=== PATIENT | female | born 1950 | race Caucasian/White ===

== ENCOUNTER 2017-04-14 13:58 | Emergency (ER) | payer MEDICARE, OTHER ==
[~2017-04-14] VITALS: Ht 165.1 cm; Wt 75.8 kg
[~2017-04-14 13:58] MED LIST: ALBU90OI INH; ALIS150T PO; ALPR.5 PO; ALPR1 PO; AMLO10 PO; AMLO10/40 PO; AMOCLA500 PO; ARIP10 PO; ASPI325 PO; ASPI81CH; ASPI81CH PO; ATOR10; ATOR40TA PO; AZIT250 PO; AZOR PO; BACL10; CALACE667G PO; CALC1.25T PO; CALCAVITD PO; CALCIUM 500 +1 EAC2 PO; CITA20 PO; CLOP75; CLOP75 PO; CRUTCH4 USE; CYCL10 PO; Cleocin HCl300 MG PO; Coumadin5 MG PO; DABI150C PO; DOXY100 PO; ENOX120I SC; EZET10; EZET10 PO; FAMO20 PO; FLUO20; FLUO20 PO; FURO20 PO; HYDACE10B PO; HYDACE5; HYDACE5 PO; HYDPAM25 PO; HYDPAM50 PO; HYDR1TAB94 PO; HYDROCODON-ACE1 EAC2 PO; Hydrochlorothia25 MG PO; IBUHYD; ISOMON30 PO; Isosorbide Mono60 MG; Isosorbide Mono60 MG PO; LEVFLO500 PO; LISI5 PO; LOPE2C PO; LORA1 PO; Lovenox120 MG/0.8 SC; MAGOXI400 PO; METO100; METO100 PO; METO100ER PO; METO50 PO; METR500 PO; MULVIT PO; MULVITMIND; NITR.3SL; NITR.4SL SL; NITR.6SL SL; NORT25 PO; Neurontin 100100 MG PO; Norco 5-325 Ta1 EACH PO; OXYACE5T; OXYACE5T PO; POTA20PAC; POTCHL10ER PO; PRED10 PO; PROCODE120 PO; PROM25 PO; Pepcid40 MG PO; RAMI5; RAMI5 PO; RANO500T PO; RXOXYACE PO; Robaxin500 MG PO; SIMV40 PO; SIMV80 PO; SPIR25; SULTRIDS PO; TRAZ100; TRAZ100 PO; TRAZ150T57 PO; TRIBENZOR PO; Ultram50 MG PO; Zithromax250 MG PO
[2017-04-14 14:24] LABS: BASOPHILS ABSOLUTE AUTO 0.07 K/mm3 (0.00-0.23); BASOPHILS PERCENT AUTO 1 % (0-2); EOSINOPHILS PERCENT AUTO 0 % (0-6); Hemoglobin 14.7 g/dL (11.5-16.0); IMMATURE GRAN ABSOLUTE AUTO 0.02 K/mm3 (0.00-0.10); IMMATURE GRAN PERCENT AUTO 0 % (0-1); LYMPHOCYTES ABSOLUTE AUTO 2.52 K/mm3 (0.84-5.20); LYMPHOCYTES PERCENT AUTO 35 % (21-46); MONOCYTES ABSOLUTE AUTO 1.32 K/mm3 (0.16-1.47); MONOCYTES PERCENT AUTO 19 % (4-13); Mean Corpuscular HGB 31.7 pg (26.0-34.0); Mean Corpuscular HGB Conc 34.2 g/dL (31.5-36.5); Mean Corpuscular Volume 93 fL (80-100); Mean Platelet Volume 9.8 fL (9.1-12.4); NEUTROPHILS ABSOLUTE AUTO 3.21 K/mm3 (1.96-9.15); NEUTROPHILS PERCENT AUTO 45 % (41-73); Platelet Count 287 K/mm3 (150-400); RDW Coefficient Variation 13.6 % (11.7-14.2); RDW Standard Deviation 46.4 fL (35.1-46.3); Red Blood Cell Count 4.63 M/mm3 (3.80-5.20); White Blood Cell Count 7.14 K/mm3 (4.00-11.30)
[2017-04-14 14:49] LABS: Alanine Aminotransfer (ALT/SGP 29 U/L (12-78); Albumin, Blood 3.5 g/dL (3.4-5.0); Albumin/Globulin Ratio 0.8 (0.8-1.8); Alk Phos 49 U/L (50-136); Anion Gap 6 mmol/L (6-16); Aspartate Aminotrans (AST/SGOT 22 U/L (12-37); Bilirubin, Total 0.2 mg/dL (0.1-1.0); Blood Urea Nitrogen 14 mg/dL (8-24); Bun/Creatinine Ratio 19.1 (12.0-20.0); CO2, Blood 31 mmol/L (21-32); Calcium, Blood 9.2 mg/dL (8.5-10.1); Chloride, Blood 104 mmol/L (98-108); Creatinine, Blood 0.73 mg/dL (0.40-1.00); Globulin, Blood 4.2 g/dL (2.2-4.0); Glomerular Filtration Rate >60 (60-); Glucose, Blood 123 mg/dL (70-99); Potassium, Blood 3.9 mmol/L (3.5-5.5); Sodium, Blood 141 mmol/L (136-145); Total Protein, Blood 7.7 g/dL (6.4-8.2); Troponin I <0.015 ng/mL (0.000-0.040)
[2017-10-23] MEDS ORDERED: TEMA15 PO (21:44)
[2017-10-24] MEDS ORDERED: FAMO20 PO (09:06)
[2017-12-18] MEDS ORDERED: Pepcid40 MG PO (12:53)
[2018-02-14] MEDS ORDERED: Tylenol325 MG PO (17:44)
[2018-02-14] MEDS ORDERED: LIDO700A20 TOP (17:44)
== END 2017-04-14 16:04 | disposition home or self-care (01) ==
LOC: ER 13:58
PROVIDERS: Physician Assistant
DX: R60.0 Localized edema (principal); I25.10 Atherosclerotic heart disease of native coronary artery without angina pectoris; E78.5 Hyperlipidemia, unspecified; I10 Essential (primary) hypertension; J44.9 Chronic obstructive pulmonary disease, unspecified; K21.9 Gastro-esophageal reflux disease without esophagitis; F32.9 Major depressive disorder, single episode, unspecified; F41.9 Anxiety disorder, unspecified; F17.210 Nicotine dependence, cigarettes, uncomplicated; Z86.73 Personal history of transient ischemic attack (TIA), and cerebral infarction without residual deficits; Z90.49 Acquired absence of other specified parts of digestive tract; Z90.710 Acquired absence of both cervix and uterus; Z88.2 Allergy status to sulfonamides; Z88.8 Allergy status to other drugs, medicaments and biological substances; Z88.6 Allergy status to analgesic agent; Z79.899 Other long term (current) drug therapy; Z79.82 Long term (current) use of aspirin
CPT/HCPCS: 36415; 71046; 80053; 83880; 84484; 85025; 93005; 93010; 93971; 96374; 96375; 96376; 99284; J1170; J1940; J2405

== ENCOUNTER 2017-08-05 00:17 | Emergency (ER) | payer MEDICARE, OTHER ==
[~2017-08-05] VITALS: Ht 167.6 cm; Wt 63.5 kg
[~2017-08-05 00:17] MED LIST changes: -ALBU90OI INH; +ALBU90OI61 INH
[2017-08-05] MEDS ORDERED: ELIQUIS2.5 MG PO (01:03)
[2017-08-05] MEDS ORDERED: ALPR.5 PO (01:03)
== END 2017-08-05 03:04 | disposition home or self-care (01) ==
LOC: ER 00:17
DX: S09.90XA Unspecified injury of head, initial encounter (principal); S05.11XA Contusion of eyeball and orbital tissues, right eye, initial encounter; S40.812A Abrasion of left upper arm, initial encounter; W22.8XXA Striking against or struck by other objects, initial encounter; I10 Essential (primary) hypertension; E11.9 Type 2 diabetes mellitus without complications; J44.9 Chronic obstructive pulmonary disease, unspecified; I25.2 Old myocardial infarction; F17.210 Nicotine dependence, cigarettes, uncomplicated; Z88.2 Allergy status to sulfonamides; Z88.8 Allergy status to other drugs, medicaments and biological substances; Z79.899 Other long term (current) drug therapy; Z79.891 Long term (current) use of opiate analgesic
CPT/HCPCS: 70450; 99284

== ENCOUNTER 2017-08-05 19:05 | Observation (INO) | payer MEDICARE, OTHER ==
[~2017-08-05] VITALS: Ht 165.1 cm; Wt 72.6 kg
[~2017-08-05 19:05] MED LIST changes: +ELIQUIS2.5 MG PO
[2017-08-05 20:25] LABS: BASOPHILS ABSOLUTE AUTO 0.06 K/mm3 (0.00-0.23); BASOPHILS PERCENT AUTO 1 % (0-2); EOSINOPHILS PERCENT AUTO 0 % (0-6); Hematocrit 40.7 % (33.0-51.0); Hemoglobin 13.7 g/dL (11.5-16.0); IMMATURE GRAN ABSOLUTE AUTO 0.01 K/mm3 (0.00-0.10); IMMATURE GRAN PERCENT AUTO 0 % (0-1); LYMPHOCYTES ABSOLUTE AUTO 2.32 K/mm3 (0.84-5.20); LYMPHOCYTES PERCENT AUTO 30 % (21-46); MONOCYTES ABSOLUTE AUTO 1.21 K/mm3 (0.16-1.47); MONOCYTES PERCENT AUTO 16 % (4-13); Mean Corpuscular HGB 31.4 pg (26.0-34.0); Mean Corpuscular HGB Conc 33.7 g/dL (31.5-36.5); Mean Corpuscular Volume 93 fL (80-100); Mean Platelet Volume 9.6 fL (9.1-12.4); NEUTROPHILS ABSOLUTE AUTO 4.08 K/mm3 (1.96-9.15); NEUTROPHILS PERCENT AUTO 53 % (41-73); Platelet Count 248 K/mm3 (150-400); RDW Coefficient Variation 13.9 % (11.7-14.2); RDW Standard Deviation 48.2 fL (35.1-46.3); Red Blood Cell Count 4.37 M/mm3 (3.80-5.20); White Blood Cell Count 7.68 K/mm3 (4.00-11.30)
[2017-08-05 20:48] LABS: Alanine Aminotransfer (ALT/SGP 30 U/L (12-78); Albumin, Blood 3.7 g/dL (3.4-5.0); Alk Phos 50 U/L (50-136); Anion Gap 6 mmol/L (6-16); Aspartate Aminotrans (AST/SGOT 24 U/L (12-37); Bilirubin, Total 0.3 mg/dL (0.1-1.0); Blood Urea Nitrogen 15 mg/dL (8-24); Bun/Creatinine Ratio 20.4 (12.0-20.0); CO2, Blood 26 mmol/L (21-32); Calcium, Blood 8.7 mg/dL (8.5-10.1); Chloride, Blood 107 mmol/L (98-108); Creatinine, Blood 0.74 mg/dL (0.40-1.00); Ethanol (Alcohol), Blood, Med <3 mg/dL; Globulin, Blood 3.7 g/dL (2.2-4.0); Glomerular Filtration Rate >60 (60-); Glucose, Blood 105 mg/dL (70-99); Potassium, Blood 3.6 mmol/L (3.5-5.5); Salicylate 6.3 mg/dL (2.8-20.0); Sodium, Blood 139 mmol/L (136-145); Total Protein, Blood 7.4 g/dL (6.4-8.2); Troponin I <0.015 ng/mL (0.000-0.040)
[2017-08-05 20:53] LABS: Thyroid Stimulating Hormone 0.707 uIU/mL (0.360-4.800)
[2017-08-05 21:07] LABS: Acetaminophen, Random <2.0 ug/mL (10.0-30.0)
[2017-08-06 08:42] LABS: Source, Urine Voided
[2017-08-06 08:50] LABS: Bilirubin, Urine Neg (Neg); Blood, Urine Neg (Neg); Glucose Qualitative, Urine Neg (Neg); Ketones, Urine Neg (Neg); Leukocyte Esterase, Urine Neg (Neg); Nitrite, Urine Neg (Neg); Protein, Urine Neg (Neg); Urobilinogen, Urine NORM (Normal)
[2017-08-06 09:07] LABS: Appearance, Urine Clear (Clear); Color, Urine Yellow (P-Yellow); U Amphetamine Screen Not Detected; U Barbituate Screen Not Detected; U Benzodiazapine Screen DETECTED; U Buprenorphine Screen Not Detected; U Cannabinoids Screen Not Detected; U Cocaine Screen Not Detected; U Methadone Screen Not Detected; U Methamphetamine Screen Not Detected; U Opiates Screen Not Detected; U Oxycodone Screen Not Detected; U Phencyclidine Screen Not Detected; U Propoxyphene Screen Not Detected
== END 2017-08-06 10:50 | disposition home or self-care (01) ==
LOC: ER 19:05 → EOR 19:06
PROVIDERS: Emergency Medicine
DX: F32.9 Major depressive disorder, single episode, unspecified (principal); G93.40 Encephalopathy, unspecified; H10.9 Unspecified conjunctivitis; I10 Essential (primary) hypertension; I25.2 Old myocardial infarction; E11.9 Type 2 diabetes mellitus without complications; J44.9 Chronic obstructive pulmonary disease, unspecified; F17.210 Nicotine dependence, cigarettes, uncomplicated; Z79.899 Other long term (current) drug therapy; Z88.2 Allergy status to sulfonamides; Z88.8 Allergy status to other drugs, medicaments and biological substances; Z88.1 Allergy status to other antibiotic agents
CPT/HCPCS: 36415; 80053; 81003; 84443; 84484; 85025; 93005; 93010; 99285; G0378; G0480

== ENCOUNTER 2018-03-25 14:28 | Inpatient (IN) | payer MEDICARE, OTHER ==
[~2018-03-25] VITALS: Ht 165.1 cm; Wt 69.4 kg
[~2018-03-25 14:28] MED LIST changes: +ALBU90OI INH; -ALBU90OI61 INH; +LIDO700A20 TOP; +TEMA15 PO; +Tylenol325 MG PO
[2018-03-25] MEDS ORDERED: DOXE10 PO (15:01)
[2018-03-25 15:07] LABS: BASOPHILS ABSOLUTE AUTO 0.04 K/mm3 (0.00-0.23); BASOPHILS PERCENT AUTO 1 % (0-2); EOSINOPHILS PERCENT AUTO 0 % (0-6); Hematocrit 42.9 % (33.0-51.0); Hemoglobin 14.4 g/dL (11.5-16.0); IMMATURE GRAN ABSOLUTE AUTO 0.03 K/mm3 (0.00-0.10); IMMATURE GRAN PERCENT AUTO 0 % (0-1); LYMPHOCYTES ABSOLUTE AUTO 2.24 K/mm3 (0.84-5.20); LYMPHOCYTES PERCENT AUTO 31 % (21-46); MONOCYTES ABSOLUTE AUTO 0.84 K/mm3 (0.16-1.47); MONOCYTES PERCENT AUTO 12 % (4-13); Mean Corpuscular HGB 32.5 pg (26.0-34.0); Mean Corpuscular HGB Conc 33.6 g/dL (31.5-36.5); Mean Corpuscular Volume 97 fL (80-100); Mean Platelet Volume 9.2 fL (9.1-12.4); NEUTROPHILS PERCENT AUTO 56 % (41-73); Platelet Count 355 K/mm3 (150-400); RDW Coefficient Variation 12.6 % (11.7-14.2); RDW Standard Deviation 45.3 fL (35.1-46.3); Red Blood Cell Count 4.43 M/mm3 (3.80-5.20); White Blood Cell Count 7.15 K/mm3 (4.00-11.30)
[2018-03-25 16:19] LABS: Alanine Aminotransfer (ALT/SGP 28 U/L (12-78); Alk Phos 58 U/L (50-136); Anion Gap 10 mmol/L (6-16); Aspartate Aminotrans (AST/SGOT 20 U/L (12-37); Bilirubin, Total 0.3 mg/dL (0.1-1.0); Blood Urea Nitrogen 18 mg/dL (8-24); Bun/Creatinine Ratio 22.2 (12.0-20.0); CO2, Blood 24 mmol/L (21-32); Calcium, Blood 8.6 mg/dL (8.5-10.1); Chloride, Blood 107 mmol/L (98-108); Creatinine, Blood 0.81 mg/dL (0.40-1.00); Globulin, Blood 4.1 g/dL (2.2-4.0); Glomerular Filtration Rate >60 (60-); Glucose, Blood 107 mg/dL (70-99); Potassium, Blood 3.7 mmol/L (3.5-5.5); Sodium, Blood 141 mmol/L (136-145); Total Protein, Blood 8.1 g/dL (6.4-8.2); Troponin I <0.015 ng/mL (0.000-0.040)
[2018-03-25] MEDS ORDERED: CLOP75 PO (20:32)
[2018-03-25] MEDS ORDERED: ABAT250V (21:03)
[2018-03-25] MEDS ORDERED: HYDR1TAB94 PO (21:03)
--- NOTE | 2018-03-25 23:22 | NUR ---
ARRIVAL TO UNIT PT TO PCU 12 APPROX 1999. STAND AND TRANSFERS TO BED. REPORTS CP, SEE PAIN ASSESSMENTS. NO SOB OR DIAPHORESIS NOTED. TELEMETRY SHOWS NORMAL SINUS RHYTHM. BP STABLE. NO CHANGE IN PAIN RATING WITH EXERTION. PT ALERT, ORIENTED AND COOPERATIVE TO COMPLETE ADMIT ITEMS. PT TALKATIVE ABOUT MEDICAL HISTORY, STATES, "I AM JUST TRYING TO TALK THROUGH THE PAIN." NITRO PASTE IN PLACE. BELEN TSE UPDATED ON PT'S CHEST PAIN, NEW ORDER FOR TRAMADOL. ATTEMPTED TO ADMIN AND PT REPORTS SHE BREAKS OUT IN HIVES. ALLERGIES UPDATED, MED NOT GIVEN. BELEN RAI UPDATED AND NEW ORDER FOR TOX SCREEN IF PATIENT IS ABLE TO URINATE AND ORDER FOR NORCO 5/325. PER BELEN RAI CANCEL TOX SCREEN IF PATIENT UNABLE TO URINATE PRIOR TO NORCO ADMIN. WHEN PT APPROACHED TO ADMIN NORCO PT REPORTS SHE TAKES 10/325 BUT ACCEPTING OF 5/325. SINCE THEN PT HAS SLEPT SOUNDLY. AFTER REVIEWING HOME MED REC, BELEN RAI UPDATED ON PT'S HOME MEDS. CONFIRMED DOSE OF XARELTO, UPDATED NORVASC TO HOME DOSE, CONTINUE WITH PLAN OF NO PLAVIX UNTIL FURTHER EVALUATION BY DAY SHIFT HOSPITALIST BASED ON STRESS TEST RESULTS. FREDI RECOMMENDING CONFIRMATION OF 10/325 NORCO DOSE WITH PT'S OUTPATIENT PHARMACY PRIOR TO INCREASING HOSPITAL DOSE.
[2018-03-25] MEDS ORDERED: Hydrocodone-Ap1 EA20 (23:43)
--- NOTE | 2018-03-25 23:52 | NUR ---
CHEST PAIN ON ROUNDS PT AWAKE AND REPORTING INCREASED CHEST PAIN. SEE PAIN ASSESSMENT. MED REC DETAILS SHOWS MUTLIPLE FILLINGS OF NORCO 10-325. BELEN RAI UPDATED. NEW ORDER FOR INCREASED NORCO. PER SIGNH, NO NEED FOR REPEAT EKG PT HAS HAD TWO NEGATIVE TROPONINS.
--- NOTE | 2018-03-26 05:50 | NUR ---
SUMMARY THROUGHOUT NIGHT PT HAS REPORTED MINIMAL SLEEP. CHEST PAIN FAIRLY CONSISTENT IN NUMBER PER PATIENT THROUGHOUT MORNING EXCEPT WHEN SHE GOT UP TO USE THE RESTROOM, IN WHICH IT INCREASED. IT DID QUICKLY GO BACK TO BASELINE NUMBER AFTER GETTING BACK INTO BED. VITALS STABLE. PT CALLING APPROPRIATELY FOR NEEDS. PT NPO FOR STRESS TEST THIS MORNING.
[2018-03-26 06:09] LABS: BASOPHILS ABSOLUTE AUTO 0.06 K/mm3 (0.00-0.23); BASOPHILS PERCENT AUTO 1 % (0-2); EOSINOPHILS ABSOLUTE AUTO 0.01 K/mm3 (0.00-0.68); EOSINOPHILS PERCENT AUTO 0 % (0-6); Hemoglobin 13.6 g/dL (11.5-16.0); IMMATURE GRAN ABSOLUTE AUTO 0.02 K/mm3 (0.00-0.10); IMMATURE GRAN PERCENT AUTO 0 % (0-1); LYMPHOCYTES ABSOLUTE AUTO 2.33 K/mm3 (0.84-5.20); LYMPHOCYTES PERCENT AUTO 41 % (21-46); MONOCYTES PERCENT AUTO 16 % (4-13); Mean Corpuscular HGB 31.9 pg (26.0-34.0); Mean Corpuscular HGB Conc 33.2 g/dL (31.5-36.5); Mean Corpuscular Volume 96 fL (80-100); Mean Platelet Volume 9.2 fL (9.1-12.4); NEUTROPHILS ABSOLUTE AUTO 2.44 K/mm3 (1.96-9.15); NEUTROPHILS PERCENT AUTO 42 % (41-73); Platelet Count 320 K/mm3 (150-400); RDW Coefficient Variation 12.8 % (11.7-14.2); RDW Standard Deviation 45.2 fL (35.1-46.3); Red Blood Cell Count 4.27 M/mm3 (3.80-5.20); White Blood Cell Count 5.76 K/mm3 (4.00-11.30)
[2018-03-26 06:33] LABS: Anion Gap 8 mmol/L (6-16); Blood Urea Nitrogen 17 mg/dL (8-24); Bun/Creatinine Ratio 22.5 (12.0-20.0); CO2, Blood 26 mmol/L (21-32); Calcium, Blood 7.7 mg/dL (8.5-10.1); Chloride, Blood 106 mmol/L (98-108); Creatinine, Blood 0.75 mg/dL (0.40-1.00); Glomerular Filtration Rate >60 (60-); Glucose, Blood 92 mg/dL (70-99); Potassium, Blood 3.6 mmol/L (3.5-5.5); Sodium, Blood 140 mmol/L (136-145)
--- NOTE | 2018-03-26 07:30 | NUR ---
initial asssessment: Pt resting in bed. States her pain a 6/10 in her chest. Describes it as a pressure that goes through to her shoulder and around her L breast. Physician aware. EKG was done by engineering documentation specialist and shows no changes. Cardiology consult. Will call in. LS clear. HR reg. Bt positive. Pulses palp. Pt denies other needs. Pt seems slightly anxious at times. Has a lot of outside stressors. VSS. call light in reach. Will monitor.
--- NOTE | 2018-03-26 07:39 | NUR ---
CHEST PAIN PT REPORTS CRUSHING CHEST PAIN THIS MORNING WITH SUDDEN ONSET. SAIGAL NOTIFIED, UPDATED ON PLAN FOR STRESS TEST THIS MORNING AND CURRENT ORDERS. NEW ORDER FOR EKG, NITRO SL AND ADDITIONAL NORCO DOSE. EKG COMPLETED, ADMIN MEDS ORDERED. PT REPORTS PAIN MILDY IMPROVED AFTER NORCO FROM 8 TO 6. REPORT TO CANDY SCHRADER.
[2018-03-26 09:50] LABS: International Normalized Ratio 1.11; Prothrombin Time Results 11.7 Sec (9.7-11.5)
--- NOTE | 2018-03-26 18:31 | NUR ---
Shift summary: Pt sitting up in bed waiting for her dinner. Pt had resting portion of stress test this am. Tolerated well. Pt also had ECHO this am. Plan for 2nd portion of stress test tomorrow. VSS throughout shift. Pt has had CP on and off throughout shift that is relieved with NOrco. Pt did have one episode of nausea without emisis that improved with zofran. Pt anxious about stress test and is very concerned with what the results are going to be. Pt states that she really doesn't want to have another angiogram, but is concerned that she may need to. Pt also statest that she does not want to be intubated, so was changed to a DNI status by physician this am. Blair gtt ordered to start tonight at 2100. Will report to night RN.
[2018-03-27 04:56] LABS: BASOPHILS ABSOLUTE AUTO 0.06 K/mm3 (0.00-0.23); BASOPHILS PERCENT AUTO 1 % (0-2); EOSINOPHILS PERCENT AUTO 0 % (0-6); Hematocrit 38.5 % (33.0-51.0); Hemoglobin 12.5 g/dL (11.5-16.0); IMMATURE GRAN ABSOLUTE AUTO 0.02 K/mm3 (0.00-0.10); IMMATURE GRAN PERCENT AUTO 0 % (0-1); LYMPHOCYTES ABSOLUTE AUTO 2.86 K/mm3 (0.84-5.20); LYMPHOCYTES PERCENT AUTO 47 % (21-46); MONOCYTES ABSOLUTE AUTO 0.87 K/mm3 (0.16-1.47); MONOCYTES PERCENT AUTO 14 % (4-13); Mean Corpuscular HGB 31.6 pg (26.0-34.0); Mean Corpuscular HGB Conc 32.5 g/dL (31.5-36.5); Mean Corpuscular Volume 97 fL (80-100); Mean Platelet Volume 9.6 fL (9.1-12.4); NEUTROPHILS ABSOLUTE AUTO 2.22 K/mm3 (1.96-9.15); NEUTROPHILS PERCENT AUTO 37 % (41-73); Platelet Count 302 K/mm3 (150-400); RDW Coefficient Variation 12.6 % (11.7-14.2); RDW Standard Deviation 45.4 fL (35.1-46.3); Red Blood Cell Count 3.96 M/mm3 (3.80-5.20); White Blood Cell Count 6.03 K/mm3 (4.00-11.30)
[2018-03-27 05:15] LABS: Anion Gap 8 mmol/L (6-16); Blood Urea Nitrogen 26 mg/dL (8-24); Bun/Creatinine Ratio 30.7 (12.0-20.0); CHOL/HDL RATIO 7.1; CO2, Blood 24 mmol/L (21-32); Calcium, Blood 7.8 mg/dL (8.5-10.1); Chloride, Blood 107 mmol/L (98-108); Cholesterol 199 mg/dL (50-200); Creatinine, Blood 0.85 mg/dL (0.40-1.00); Glomerular Filtration Rate >60 (60-); Glucose, Blood 96 mg/dL (70-99); HDL Cholesterol 28 mg/dL (>39); LDL/HDL RATIO 4.1; Low Density Lipoprotein Chol 116 mg/dL (0-110); Potassium, Blood 3.7 mmol/L (3.5-5.5); Sodium, Blood 139 mmol/L (136-145); Triglycerides 275 mg/dL (30-160); Very Low Density Lipoprot Chol 55 mg/dL (6-32)
--- NOTE | 2018-03-27 06:13 | NUR ---
SHIFT SUMMARY PT ALERT AND ORIENTED. VS STABLE. HEPARIN GTT STARTED AT 2130 AND TITRATED THIS AM WITH BOLUS SEE EMAR. PT AWAITING SECOND PORTION OF STRESS TEST. ALL NITRO HELD. PT COMPLAINED OF PAIN THIS SHIFT ON AND OFF AND TREATED SEE EMAR. NO OTHER CHANGES SINCE INITIAL ASSESSMENT. WILL CONTINUE TO MONITOR AND REPORT TO ONCOMING RN.
--- NOTE | 2018-03-27 07:30 | NUR ---
INITIAL ASSESSMENT: PT resting in bed but wakes to verbal stimulus. BP and HR slighty slow. Will hold some medicaions per vs. HR braydicardic. LS clear. BT positive. Pulses palp. Pt states that her chest pain is much improved but has 4/10 general chronic pain. Will medicate per orders. PT positive, abd tender. States that she has a little nasuea. Plan for stress test this afternoon. NPO after breakfast. Call light in reach. Denies questions. Will monitor.
--- NOTE | 2018-03-27 13:15 | NUR ---
UPDATE: PT CALLED RN INTO ROOM WITH 8/10 CHEST PAIN. STATED IT WAS A PRESSURE THAT RADIATED DOWN HER L ARM. EKG WAS DONE AND NORCO TABLET WAS GIVEN. PT HAD RECENTLY RECIEVED THE LEXISCAN INJECTION FOR HER STRESS TEST. ENCOURAGED TO DRINK SOME CAFFINE. HR WAS IN THE 70'S, BP WAS 135 SYSTOLICALLY. PT WAS GIVEN HER METOPROLOL AND AMLODIPINE. AFTER A FEW MINUTES PT PAIN SUBSIDED AND CAME DOWN TO A 3/10. FIRST RESPONDER WAS NOTIFIED. CALL LIGHT IN REACH. WILL MONITOR.
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
--- NOTE | 2018-03-27 16:56 | NUR ---
UPDATE: PT VERY ANXIOUS TO GO HOME. STATES "I JUST WANT TO BE DISCHARGED." PT KNOWS SHE HAS TO WAIT FOR THE STRESS TEST TO BE READ AND FOR DISCHARGE ORDERS FROM THE HOSPITALIST. DENIES OTHER NEEDS.
[2018-03-27] MEDS ORDERED: ATOR40TA PO (17:20)
[2018-03-27] MEDS ORDERED: ASPI81CH PO (17:20)
[2018-03-27] MEDS ORDERED: FAMO20 PO (17:21)
[2018-03-27] MEDS ORDERED: ONDA4 PO (17:22)
--- NOTE | 2018-03-27 17:48 | NUR ---
DISCHARGE : Pt was given verbal and written discharge instructions. Verblaized understanding, denies questions. Rx called to sayra srivastava. IV discontinued, cath intact. Pt left via w/c with MEAT SERVICE TEAM MEMBER, stable at time of discharge.
== END 2018-03-27 17:45 | disposition home or self-care (01) | DRG 313 ==
LOC: ER 14:28 → PCU 17:17
PROVIDERS: Internal Medicine; Internal Medicine Cardiovascular Disease; ADMIT Internal Medicine
DX: R07.9 Chest pain, unspecified (principal); J44.9 Chronic obstructive pulmonary disease, unspecified; I25.2 Old myocardial infarction; Z86.74 Personal history of sudden cardiac arrest; Z95.5 Presence of coronary angioplasty implant and graft; F17.210 Nicotine dependence, cigarettes, uncomplicated; E78.5 Hyperlipidemia, unspecified; Z86.73 Personal history of transient ischemic attack (TIA), and cerebral infarction without residual deficits; E11.51 Type 2 diabetes mellitus with diabetic peripheral angiopathy without gangrene; K21.9 Gastro-esophageal reflux disease without esophagitis; F41.9 Anxiety disorder, unspecified; I25.119 Atherosclerotic heart disease of native coronary artery with unspecified angina pectoris; G89.29 Other chronic pain; I10 Essential (primary) hypertension; Z79.02 Long term (current) use of antithrombotics/antiplatelets; Z79.82 Long term (current) use of aspirin; Z79.84 Long term (current) use of oral hypoglycemic drugs
CPT/HCPCS: 36415; 71046; 78452; 80048; 80053; 80061; 82040; 82947; 83690; 84484; 85025; 85610; 85730; 93005; 93010; 93017; 93308; 93321; 99285-25; A9500; J0706; J1644; J2405; J2785

== ENCOUNTER 2018-08-25 18:00 | Observation (INO) | payer MEDICARE, OTHER ==
[~2018-08-25] VITALS: Ht 165.1 cm; Wt 67.3 kg
[~2018-08-25 18:00] MED LIST changes: +ABAT250V; -ALBU90OI INH; +Adult Low Dose81 MG PO; +DOXE10 PO; -METO50 PO; -NITR.6SL SL; +ONDA4 PO
[2018-08-25 18:32] LABS: BASOPHILS ABSOLUTE AUTO 0.09 K/mm3 (0.00-0.23); BASOPHILS PERCENT AUTO 1 % (0-2); EOSINOPHILS PERCENT AUTO 0 % (0-6); Hematocrit 41.6 % (33.0-51.0); Hemoglobin 14.2 g/dL (11.5-16.0); IMMATURE GRAN ABSOLUTE AUTO 0.03 K/mm3 (0.00-0.10); IMMATURE GRAN PERCENT AUTO 0 % (0-1); LYMPHOCYTES ABSOLUTE AUTO 2.43 K/mm3 (0.84-5.20); LYMPHOCYTES PERCENT AUTO 30 % (21-46); MONOCYTES ABSOLUTE AUTO 1.39 K/mm3 (0.16-1.47); MONOCYTES PERCENT AUTO 17 % (4-13); Mean Corpuscular HGB 32.6 pg (26.0-34.0); Mean Corpuscular HGB Conc 34.1 g/dL (31.5-36.5); Mean Corpuscular Volume 96 fL (80-100); Mean Platelet Volume 9.6 fL (9.1-12.4); NEUTROPHILS ABSOLUTE AUTO 4.24 K/mm3 (1.96-9.15); NEUTROPHILS PERCENT AUTO 52 % (41-73); Platelet Count 369 K/mm3 (150-400); RDW Coefficient Variation 13.1 % (11.7-14.2); RDW Standard Deviation 46.6 fL (35.1-46.3); Red Blood Cell Count 4.35 M/mm3 (3.80-5.20); White Blood Cell Count 8.18 K/mm3 (4.00-11.30)
[2018-08-25 19:14] LABS: Alanine Aminotransfer (ALT/SGP 29 U/L (12-78); Albumin, Blood 4.1 g/dL (3.4-5.0); Albumin/Globulin Ratio 1.2 (0.8-1.8); Alk Phos 63 U/L (50-136); Anion Gap 10 mmol/L (6-16); Aspartate Aminotrans (AST/SGOT 17 U/L (12-37); Bilirubin, Total 0.4 mg/dL (0.1-1.0); Blood Urea Nitrogen 20 mg/dL (8-24); Bun/Creatinine Ratio 18.5 (12.0-20.0); CO2, Blood 22 mmol/L (21-32); Calcium, Blood 9.3 mg/dL (8.5-10.1); Chloride, Blood 106 mmol/L (98-108); Creatinine, Blood 1.08 mg/dL (0.40-1.00); Globulin, Blood 3.5 g/dL (2.2-4.0); Glomerular Filtration Rate 53 (60-); Glucose, Blood 104 mg/dL (70-99); Potassium, Blood 2.8 mmol/L (3.5-5.5); Sodium, Blood 138 mmol/L (136-145); Total Protein, Blood 7.6 g/dL (6.4-8.2); Troponin I <0.015 ng/mL (0.000-0.040)
[2018-08-25] MEDS ORDERED: AMIT10 PO (19:35)
[2018-08-25] MEDS ORDERED: Zocor20 MG PO (20:00)
[2018-08-25] MEDS ORDERED: Nitrostat0.4 MG SL (20:00)
[2018-08-25] MEDS ORDERED: ALBU90OI INH (20:01)
[2018-08-25] MEDS ORDERED: Hydrocodone-Ap1 EA20 PO (20:02)
[2018-08-25] MEDS ORDERED: ELIQUIS5 MG PO (20:03)
[2018-08-25] MEDS ORDERED: AMLO10 PO (22:15)
[2018-08-25] MEDS ORDERED: POTA10T PO (22:18)
[2018-08-25] MEDS ORDERED: CYCL10 PO (22:19)
--- NOTE | 2018-08-26 05:04 | NUR ---
SHIFT SUMMARY PT A&O X4 T/O SHIFT. ADMIT FROM ER. PT CO CHEST PAIN RADIATING INTO L NECK. VSS; TELEMETRY IN PLACE, NSR PER CONTRACT CONSULTANT T/O PT TIME ON UNIT. PT DENIES NAUSESA. NPO POST MIDNIGHT; ORAL SWABS AND ORAL CARE SUPPLIES IN PT REACH. LS CLEAR; 0.5L O2 VIA NC. CONT. OXIMETRY IN PLACE; PT DENIES SOB. PT STS MANY CONCERNS REGARDING CURRENT HOUSING SITUATION. FAMILY TO VISIT PT X2 EVENTS. SCD'S TO BLE'S. CALL LIGHT IN REACH; PT DEMONSTRATES USE. WCTM UNTIL REPORT TO DAY SHIFT RN.
[2018-08-26 06:55] LABS: Hematocrit 39.9 % (33.0-51.0); Hemoglobin 13.4 g/dL (11.5-16.0); Mean Corpuscular HGB 32.9 pg (26.0-34.0); Mean Corpuscular HGB Conc 33.6 g/dL (31.5-36.5); Mean Corpuscular Volume 98 fL (80-100); Mean Platelet Volume 9.5 fL (9.1-12.4); Platelet Count 316 K/mm3 (150-400); RDW Coefficient Variation 13.2 % (11.7-14.2); RDW Standard Deviation 48.4 fL (35.1-46.3); Red Blood Cell Count 4.07 M/mm3 (3.80-5.20); White Blood Cell Count 7.43 K/mm3 (4.00-11.30)
[2018-08-26 07:11] LABS: International Normalized Ratio 1.03; Prothrombin Time Results 10.9 Sec (9.7-11.5)
[2018-08-26 07:12] LABS: Anion Gap 4 mmol/L (6-16); Blood Urea Nitrogen 23 mg/dL (8-24); Bun/Creatinine Ratio 26.3 (12.0-20.0); CO2, Blood 25 mmol/L (21-32); Calcium, Blood 8.5 mg/dL (8.5-10.1); Chloride, Blood 112 mmol/L (98-108); Creatinine, Blood 0.87 mg/dL (0.40-1.00); Glomerular Filtration Rate >60 (60-); Glucose, Blood 95 mg/dL (70-99); Magnesium, Blood 2.4 mg/dL (1.6-2.4); Potassium, Blood 3.8 mmol/L (3.5-5.5); Sodium, Blood 141 mmol/L (136-145)
[2018-08-26] MEDS ORDERED: FAMO20 PO (13:37)
[2018-08-26] MEDS ORDERED: AMIT25 PO (13:39)
[2018-08-26] MEDS ORDERED: ATOR40TA PO (13:41)
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
--- NOTE | 2018-08-26 15:17 | NUR ---
DISCHARGE NOTE PT STABLE FOR DISCHARGE. IV X2 REMOVED. DISCHARGE INSTRUCTIONS, DISCHARGE MEDICATIONS, AND MEDICATION EDUCATION PROVIDED TO PT AND REVIEWED WITH PT. PT VERBALIZES UNDERSTANDING AND DENIES QUESTIONS. PT DISCHARGED WITH BELONGINGS TO WAITING CAR VIA WHEELCHAIR.
== END 2018-08-26 15:00 | disposition home or self-care (01) ==
LOC: ER 18:00 → PCU 20:52 → ER 20:52 → PCU 21:20
PROVIDERS: Emergency Medicine; Nurse Practitioner Acute Care; ADMIT Internal Medicine
DX: R07.2 Precordial pain (principal); R10.9 Unspecified abdominal pain; G89.29 Other chronic pain; N17.9 Acute kidney failure, unspecified; E87.6 Hypokalemia; B34.9 Viral infection, unspecified; E11.9 Type 2 diabetes mellitus without complications; I25.10 Atherosclerotic heart disease of native coronary artery without angina pectoris; I10 Essential (primary) hypertension; I25.2 Old myocardial infarction; E78.5 Hyperlipidemia, unspecified; J44.9 Chronic obstructive pulmonary disease, unspecified; F41.1 Generalized anxiety disorder; F32.9 Major depressive disorder, single episode, unspecified; F17.210 Nicotine dependence, cigarettes, uncomplicated; Z86.73 Personal history of transient ischemic attack (TIA), and cerebral infarction without residual deficits; Z86.718 Personal history of other venous thrombosis and embolism; Z86.711 Personal history of pulmonary embolism; Z79.899 Other long term (current) drug therapy; Z79.82 Long term (current) use of aspirin; Z79.01 Long term (current) use of anticoagulants; Z88.8 Allergy status to other drugs, medicaments and biological substances; Z88.2 Allergy status to sulfonamides; Z88.6 Allergy status to analgesic agent
CPT/HCPCS: 36415; 71045; 80048; 80053; 83735; 84484; 85025; 85027; 85610; 93005; 93010; 96365; 96375; 96376; 99285-25; G0378; J1170; J3480; J7030

== ENCOUNTER 2018-09-17 13:53 | Inpatient (IN) | payer MEDICARE, OTHER ==
[~2018-09-17] VITALS: Ht 165.1 cm; Wt 73.3 kg
[~2018-09-17 13:53] MED LIST changes: +ALBU90OI INH; +AMIT10 PO; +AMIT25 PO; +ELIQUIS5 MG PO; +Hydrocodone-Ap1 EA20 PO; +Nitrostat0.4 MG SL; +POTA10T PO; +Zocor20 MG PO
[2018-09-17] MEDS ORDERED: DIPH50 PO (14:05)
[2018-09-17] MEDS ORDERED: BIOTIN5000 MCG PO (14:06)
[2018-09-17 14:07] LABS: BASOPHILS ABSOLUTE AUTO 0.08 K/mm3 (0.00-0.23); BASOPHILS PERCENT AUTO 1 % (0-2); EOSINOPHILS PERCENT AUTO 0 % (0-6); Hematocrit 42.1 % (33.0-51.0); Hemoglobin 14.1 g/dL (11.5-16.0); IMMATURE GRAN ABSOLUTE AUTO 0.03 K/mm3 (0.00-0.10); IMMATURE GRAN PERCENT AUTO 0 % (0-1); LYMPHOCYTES ABSOLUTE AUTO 3.26 K/mm3 (0.84-5.20); LYMPHOCYTES PERCENT AUTO 32 % (21-46); MONOCYTES ABSOLUTE AUTO 1.47 K/mm3 (0.16-1.47); MONOCYTES PERCENT AUTO 14 % (4-13); Mean Corpuscular HGB 32.2 pg (26.0-34.0); Mean Corpuscular HGB Conc 33.5 g/dL (31.5-36.5); Mean Corpuscular Volume 96 fL (80-100); Mean Platelet Volume 9.3 fL (9.1-12.4); NEUTROPHILS PERCENT AUTO 53 % (41-73); Platelet Count 388 K/mm3 (150-400); RDW Coefficient Variation 13.6 % (11.7-14.2); RDW Standard Deviation 48.3 fL (35.1-46.3); Red Blood Cell Count 4.38 M/mm3 (3.80-5.20); White Blood Cell Count 10.34 K/mm3 (4.00-11.30)
[2018-09-17] MEDS ORDERED: TEMA15 PO (14:07)
[2018-09-17 14:34] LABS: Acetaminophen, Random <2.0 ug/mL (10.0-30.0); Alanine Aminotransfer (ALT/SGP 30 U/L (12-78); Albumin, Blood 3.8 g/dL (3.4-5.0); Alk Phos 71 U/L (50-136); Anion Gap 7 mmol/L (6-16); Aspartate Aminotrans (AST/SGOT 20 U/L (12-37); Bilirubin, Total 0.2 mg/dL (0.1-1.0); Blood Urea Nitrogen 14 mg/dL (8-24); Bun/Creatinine Ratio 17.1 (12.0-20.0); CO2, Blood 26 mmol/L (21-32); Calcium, Blood 8.3 mg/dL (8.5-10.1); Chloride, Blood 105 mmol/L (98-108); Creatinine, Blood 0.82 mg/dL (0.40-1.00); Ethanol (Alcohol), Blood, Med <3 mg/dL; Globulin, Blood 3.7 g/dL (2.2-4.0); Glomerular Filtration Rate >60 (60-); Glucose, Blood 156 mg/dL (70-99); Potassium, Blood 2.7 mmol/L (3.5-5.5); Salicylate 5.9 mg/dL (2.8-20.0); Sodium, Blood 138 mmol/L (136-145); Total Protein, Blood 7.5 g/dL (6.4-8.2)
[2018-09-17 15:06] LABS: U Amphetamine Screen Not Detected; U Barbituate Screen Not Detected; U Benzodiazapine Screen DETECTED; U Buprenorphine Screen Not Detected; U Cannabinoids Screen Not Detected; U Cocaine Screen Not Detected; U Methadone Screen Not Detected; U Methamphetamine Screen Not Detected; U Opiates Screen DETECTED; U Oxycodone Screen Not Detected; U Phencyclidine Screen Not Detected; U Propoxyphene Screen Not Detected
--- NOTE | 2018-09-17 16:10 | NUR ---
ARRIVAL TO ICU PT. ARRIVES FROM ER AND TRANSFERRED TO ICU BED. PT. PLACED ON HELP DESK SUPPORT, AND BP OF 90S SYSTOLIC UPON ARRIVAL. PT. STATING "NO I AM GOING TO LEAVE, I DONT WANT TO BE HERE, I WANT TO END THIS", PT STATES "I WANTED TO DRIVE OUT IN FRONT OF A SEMI THIS MORNING BUT THEN I SAW A CAR WITH KIDS AND I JUST COULDNT DO THAT TO THEM", PT STATES "I DONT WANT TO LIVE I DONT WANT TO DO THIS". PT. FRIEND BROUGHT TO BEDSIDE TO ASSIST WITH CALMING OF PT. PT. CALMS WITH DISCUSSION. PT. COOPERATIVE WITH CARE AT THIS TIME. 2MD HOLD DISCUSSED, PT TEARFUL. BED ALARM ON AND BED IN LOW POSITION. TEMP DARNELL IN PLACE.
--- NOTE | 2018-09-17 16:20 | NUR ---
DR. PRATT AT [facility] PT NOW HYPOTENSIVE WITH SYSTOLIC IN THE 70S, SEE FLOW SHEET. NS FLUID BOLUS STARTED. CHRISTOPHER RN AT BEDSIDE TO PLACE PICC LINE.
--- NOTE | 2018-09-17 17:22 | NUR ---
PICC LINE PLACECD PT STATING "ILL DO IT IN MY CAR THE NEXT TIME AND YOU WILL NEVER FIND ME", "I JUST WANT TO , IM DONE", "NEXT TIME ILL BLOW MY CAR UP WITH ME IN IT" PT HITTING SELF IN THE HEAD. PT CALMS WITH TALKING BUT GETS AGGITATED EASILY.PT FRIEND REMAINS AT BEDSIDE.
--- NOTE | 2018-09-17 18:08 | NUR ---
MEDICATION ADJUSTMENTS PER DR. PRATT POTASSIUM GTT INFUSION INCREASED TO 20MEQ/HR, VERFIED WITH PHARAMCY GTT INFUSING THROUGH CENTRAL LINE. PUMP VERIFIED WITH CHRISTOPH GUPTA. LEVOPHED GTT STARTED AT 5MCG/KG/MIN. 2ND LITER BOLUS CONTINUES INFUSING.
--- NOTE | 2018-09-17 19:12 | NUR ---
SHIFT SUMMARY PT. REMAINS ALERT AND ORIENTED AND VERBALIZING THOUGHTS OF SELF HARM. PT REMAINS HYPOTENSIVE WITH LEVOPHED GTT CONTINUING TO INCREASE FOR SUPPORT. PICC LINE TO LEFT UPPER ARM. REPORT TO ONCOMING RN.
[2018-09-17 20:27] LABS: Acetaminophen, Random <2.0 ug/mL (10.0-30.0); Salicylate 3.9 mg/dL (2.8-20.0)
--- NOTE | 2018-09-17 21:38 | NUR ---
PATIENTS PERSONAL BELONGINGS HOME WITH SON AMY
--- NOTE | 2018-09-17 23:22 | NUR ---
PATIENT AWAKENS EASILY AT TIMES VERY AGITATED AND UPSET THAT SHE IS STILL ALIVE. PATIENT VERBALIZED THAT SHE DOESN'T WANT ANY OF THIS, AND THAT WE SHOULD TURN IT ALL OFF AND LET HER . PATIENT HAD A SHORT VISIT WITH HER SON AMY AND GRANDSON DARIUSZ, DURING VISIT PATIENT DID WELL AFTER THEY LEFT PATIENT BECAME VERY AGITATED AND WANTING TO , ATTEMPTING THERAPEUTIC CONVERSATION. ATIVAN GIVEN TO HELP PATIENT RELAX. PATIENT NOW ON LEVOPHED, VASOPRESSIN, HIGH DOSE INSULIN INFUSING WITH D10 TO TITRATE TO MAINTAIN GLUCOSE AND NS WITH KCL INFUSING. PATIENT HAVING FREQUENT PVC, LABS DRAWN.
[2018-09-17 23:25] LABS: Albumin, Blood 2.8 g/dL (3.4-5.0); Anion Gap 10 mmol/L (6-16); Blood Urea Nitrogen 10 mg/dL (8-24); Bun/Creatinine Ratio 14.9 (12.0-20.0); CO2, Blood 17 mmol/L (21-32); Calcium, Blood 8.5 mg/dL (8.5-10.1); Chloride, Blood 116 mmol/L (98-108); Creatinine, Blood 0.67 mg/dL (0.40-1.00); Glomerular Filtration Rate >60 (60-); Glucose, Blood 146 mg/dL (70-99); Magnesium, Blood 1.6 mg/dL (1.6-2.4); Phosphorus, Blood 1.1 mg/dL (2.5-4.9); Potassium, Blood 3.6 mmol/L (3.5-5.5); Sodium, Blood 143 mmol/L (136-145)
[2018-09-18 04:10] LABS: BASOPHILS ABSOLUTE AUTO 0.05 K/mm3 (0.00-0.23); BASOPHILS PERCENT AUTO 0 % (0-2); EOSINOPHILS PERCENT AUTO 0 % (0-6); Hematocrit 34.8 % (33.0-51.0); Hemoglobin 11.3 g/dL (11.5-16.0); IMMATURE GRAN ABSOLUTE AUTO 0.07 K/mm3 (0.00-0.10); IMMATURE GRAN PERCENT AUTO 1 % (0-1); LYMPHOCYTES ABSOLUTE AUTO 2.29 K/mm3 (0.84-5.20); LYMPHOCYTES PERCENT AUTO 19 % (21-46); MONOCYTES ABSOLUTE AUTO 1.79 K/mm3 (0.16-1.47); MONOCYTES PERCENT AUTO 15 % (4-13); Mean Corpuscular HGB 32.1 pg (26.0-34.0); Mean Platelet Volume 9.4 fL (9.1-12.4); NEUTROPHILS ABSOLUTE AUTO 8.08 K/mm3 (1.96-9.15); NEUTROPHILS PERCENT AUTO 66 % (41-73); Platelet Count 309 K/mm3 (150-400); RDW Coefficient Variation 13.5 % (11.7-14.2); RDW Standard Deviation 48.3 fL (35.1-46.3); Red Blood Cell Count 3.52 M/mm3 (3.80-5.20); White Blood Cell Count 12.28 K/mm3 (4.00-11.30)
[2018-09-18 04:13] LABS: Mean Corpuscular HGB Conc 32.5 g/dL (31.5-36.5); Mean Corpuscular Volume 99 fL (80-100)
[2018-09-18 04:26] LABS: Anion Gap 7 mmol/L (6-16); Blood Urea Nitrogen 9 mg/dL (8-24); Bun/Creatinine Ratio 13.9 (12.0-20.0); CO2, Blood 19 mmol/L (21-32); Calcium, Blood 8.2 mg/dL (8.5-10.1); Chloride, Blood 111 mmol/L (98-108); Creatinine, Blood 0.65 mg/dL (0.40-1.00); Glomerular Filtration Rate >60 (60-); Glucose, Blood 131 mg/dL (70-99); Potassium, Blood 3.8 mmol/L (3.5-5.5); Sodium, Blood 137 mmol/L (136-145)
--- NOTE | 2018-09-18 06:21 | NUR ---
PATIENT CONTINUES TO VERBALIZE THAT SHE DOESN'T WANT TO BE ALIVE. AT TIMES RESTLESS KICKING LEGS IN BED "I JUST WANT TO BE KNOCKED OUT" ATIVAN GIVEN TO HELP PATIENT RELAX. HIGH DOSE INSULIN AT 1 UNIT/KG/HR CONTINUES WITH D10 TITRATING TO MAINTAIN GLUCOSE. LEVOPHED AND VASOPRESSIN CONTINUE. NS WITH 20KCL TO HELP MAINTAIN K+ LEVEL. POOR URINE OUT PUT T/O NIGHT, DARNELL DRAINING CLEAR YELLOW URINE. LOW GRADE TEMP T/O NIGHT. REMOTE MONITORING NOTIFIED THAT PATIENT IS VERY HIGH POTENTIAL TO HARM SELF AND ASKED THEM TO CALL QUICKLY.
--- NOTE | 2018-09-18 07:30 | NUR ---
ASSUMED CARE OF PT THIS AM PT. RESTLESS IN BED, PICKING AT BLANKETS. PT ALERT AND ORIENTED THIS AM, CONTINUES TO STATE "JUST LET ME , I DONT WANT TO BE HERE". PT. CURRENTLY ON LEVOPHED GTT AT 20MCG/KG/MIN WELL VASOPRESSIN 0.04U/MIN FOR BP SUPPORT. HR 102, WITH OCCASIONAL PVCS. PT. CURRENTLY ON INSULIN GTT AT 71ML/HR (1/U/KG/HR). D10 GTT INFUSING AT 175ML/HR, WITH NS 20K AT 125ML/HR. 3LNC, LS CLEAR WITH HARSH MOIST COUGH, NON PRODUCTIVE AT THIS TIME. PT. CONTINUES WITH DARNELL IN PLACE DRAINING TO GRAVITY. RERESHMENTS AT BEDSIDE.
--- NOTE | 2018-09-18 07:59 | NUR ---
DR. JACKSON AT BEDSIDE NICOTINE PATCH ORDERE ALONG WITH PT HOME PAIN MEDICATION. PT. REPORTS CHRONIC PAIN TO LEGS AND HIPS. FAN PLACED AT BEDSIDE. PT REFUSING BREAKFAST TRAY THIS AM. CONTINUES TO BE RESTLESS IN BED, CALMS WITH CONVERSATION.
--- NOTE | 2018-09-18 09:12 | NUR ---
PT RESTLESS IN BED CRYING STATING "I DONT WANT TO BE HERE" OVER AND OVER AGAIN. PICKING AT BLANKETS, CRYING.
[2018-09-18 12:02] LABS: Source, Urine Catheter
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
[2018-09-18 12:17] LABS: Bilirubin, Urine Neg (Neg); Blood, Urine 5+ (Neg); Glucose Qualitative, Urine 1+ (Neg); Ketones, Urine Neg (Neg); Leukocyte Esterase, Urine 3+ (Neg); Nitrite, Urine Neg (Neg); Protein, Urine 2+ (Neg); Urobilinogen, Urine NORM (Normal)
[2018-09-18 12:21] LABS: Hemoglobin 10.8 g/dL (11.5-16.0)
[2018-09-18 12:27] LABS: Appearance, Urine Hazy (Clear); Color, Urine Yellow (P-Yellow)
[2018-09-18 12:32] LABS: Red Blood Cells, Urine TNTC /hpf (0-2); White Blood Cells, Urine TNTC /hpf (0-5)
[2018-09-18 12:33] LABS: Bacteria Mod /hpf
[2018-09-18 12:34] LABS: Squamous Epithelial Cells Few /hpf (Few)
[2018-09-18 12:35] LABS: Transitional Epithelial Cells Rare /hpf (0-Rare)
[2018-09-18 12:45] LABS: Magnesium, Blood 1.5 mg/dL (1.6-2.4); Phosphorus, Blood 1.6 mg/dL (2.5-4.9)
--- NOTE | 2018-09-18 12:47 | NUR ---
PT UPDATE: PT HAS A FRIEND AT THE BEDSIDE VISITING. PT REPORTS, "I JUST WANT TO GO HOME." PT REPORTS PAIN R/T LUPUS, AND NORMALLY TAKES NORCO 10/325MG FOR THIS CONDITION.
--- NOTE | 2018-09-18 14:30 | NUR ---
PT PROVIDED WITH PAIN MEDICATION AND ATIVAN PER REQUEST. PT CONTINUES TO BE RESTLESS IN BED, REQUESTING TO LEAVE AND NEEDING TO BE CALMED WITH CONVERSATION. PT NOTED TO BE COUGHING HARD IN ROOM, RN IN TO CHECK ON PT, AND PT HAD VOMITED UP CLEAR BROWN FLUID IN BED. PT. REPORTS SHE DOES NOT FEEL SICK TO STOMACH BUT COUGHED TO HARD AND COULDNT HELP BUT VOMIT. PT. OFFERED NAUSEA MEDICINE BUT REFUSED. COMPLETE BED CHANGE DONE. CALL LIGHT REMAINS WITH PT. EMESIS BAG AT BEDSIDE. LEVOPHED GTT TITRATED DOWN TO 18MCG/KG/MIN AT THIS TIME.
--- NOTE | 2018-09-18 16:30 | NUR ---
PT RESTLESS IN BED RN IN TO ROOM, PT SITTING UP AT BEDSIDE. PT. STATES "IM TIRED OF THIS IM LEAVING, I WANT TO GO". PT. ASKED TO RETURN TO BED DUE TO LOW BP AND CORDS AND LINES. PT. REMINDED AGAIN ABOUT 2MD HOLD, PT CLIMBED BACK INTO BED, TEARFUL AND STATES "IM NOT GETTING MY MEDICINE HERE, NO ONE HAS GIVEN ME MY PLAVIX OR MY ELIQUIS". PT. REMINDED THAT SHE IS GETTING HER HOME MEDICATIONS AND SHE TOOK THEM THIS AM, AND HER BLOOD THINNER WILL BE GIVEN AT NIGHT. PT. STATES "I KNOW BUT I WANT TO GO". PT. THEN REPORTS HEADACHE. OFFERED PT COLD TOWEL FOR FOREHEAD AND PEPSI FOR CAFFINE. PT. REFUSED ALL, OFFERED TO CALL FOR TYLENOL, PT REFUSED AND STATES "NONE OF THAT STUFF WORKS, I JUST WANT TO GO" PT PROVIDED WITH ICE WATER AND ASSISTED TO REPOSITION IN BED FOR COMFORT.
--- NOTE | 2018-09-18 16:51 | NUR ---
DR. BENAVIDESUFF HERE TO ASSESS PT.
--- NOTE | 2018-09-18 17:40 | NUR ---
SHIFT SUMMARY PT. MOOD TEARFUL AND IRRITABLE T/O THE DAY. PT. REPEATING SELF FREQUENTLY T/O THE DAY. HOME PAIN MED RESTARTED TODAY, AND WAS MED WITH ATIVAN PRN ANXIETY. PT. LEVOPHED GTT TITRATED DOWN TO 15MCG/KG/MIN THIS SHIFT AND REMAINS ON ALL OTHER INFUSIONS. PT. DID VOMIT TODAY AFTER A COUGHING SPELL HOWEVER REFUSED ALL NAUSEA MEDICAITON. PT. REFUSED FOOD TRAYS TODAY; SUPPLEMENTED WITH ENSURE SHAKES AT MEALS. PT. HAD BM TODAY AND CARIE REMAINS IN PLACE FOR STRICT I&OS. REPORT TO ONCJULY GUPTA
--- NOTE | 2018-09-18 17:54 | NUR ---
UPDATED PT SON BELLA (OKAY PER PT) PT SON VOICED CONCERNS ABOUT HER DISCHARGE PLANS AND REPORTS THAT HE AND HIS FAMILY MEMBERS HAD A CONVERSATION AND DONT FEEL LIKE ITS SAFE FOR HER TO BE "LET OUT" OF THE HOSPITAL BECAUSE "SHE WILL DO THIS AGAIN". REASSURED PT SON THAT SHE WILL BE REASSESSED FOR SAFETY PRIOR TO CONSIDERING DISCHARGE
--- NOTE | 2018-09-18 20:40 | NUR ---
ASSUMED PT CARE AT 1900 PT RESTING IN BED VERY RESTLESS. MOANING AND GROANING THAT HER HEAD HURT. STATED IT WAS THROBBING 9/10 HEADACHE PAIN; HOWEVER, PT DECLINING ANY PHARMACOLOGICAL AND NON-PHARMACOLOGICAL INTERVENTIONS. PT IS ALERT AND ORIENTED; ABLE TO FOLLOW COMMANDS. PER REPORT PT HAS NOT BEEN UTILIZING CALL LIGHT APPROPRIATELY. AT START OF SHIFT LEVOPHED WAS AT 15MCG/MIN. VASOPRESSIN AT 0.04 UNITS/MIN; BOTH HAVE BEEN TITRATED OFF AT THIS POINT IN TIME. SHIFT STARTED OUT WITH DEXTROSE 10% AT 125MLS/HR; TITRATED UP TO 150MLS/HR D/T BLOOD SUGAR AT 90. INSULIN REMAINS AT 1UNIT/KG/HR AT A RATE OF 71ML/HR. NS WITH 20MEQ OF KCL CONTINUES TO INFUSE AT 125MLS/HR. ONCE LEVOPHED AND VASOPRESSIN WERE TITRATED OFF PT STATES HER HEADACHE HAS SIGNIFICANTLY IMPROVED. ADMINISTERED 1MG OF ATIVAN PER ORDERS D/T PT'S RESTLESSNESS AND ANXIETY. SHE CONTINUES TO REMOVE BLOOD PRESSURE CUFF AND PULL AT LINES; WILL MONITOR FOR EFFECTIVENESS. WILL CONTINUE TO TITRATE GTTS TO EFFECT. CALL LIGHT LEFT WITHIN REACH; WILL ENCOURAGE PT TO UTILIZE APPROPRIATELY, BUT WILL ALSO CONTINUE FREQUENT VISUAL CHECKS.
[2018-09-19 03:27] LABS: BASOPHILS ABSOLUTE AUTO 0.03 K/mm3 (0.00-0.23); BASOPHILS PERCENT AUTO 0 % (0-2); EOSINOPHILS PERCENT AUTO 0 % (0-6); Hematocrit 33.2 % (33.0-51.0); Hemoglobin 11.5 g/dL (11.5-16.0); IMMATURE GRAN ABSOLUTE AUTO 0.03 K/mm3 (0.00-0.10); IMMATURE GRAN PERCENT AUTO 0 % (0-1); LYMPHOCYTES ABSOLUTE AUTO 1.69 K/mm3 (0.84-5.20); LYMPHOCYTES PERCENT AUTO 19 % (21-46); MONOCYTES ABSOLUTE AUTO 1.16 K/mm3 (0.16-1.47); MONOCYTES PERCENT AUTO 13 % (4-13); Mean Corpuscular HGB 32.8 pg (26.0-34.0); Mean Corpuscular HGB Conc 34.6 g/dL (31.5-36.5); Mean Corpuscular Volume 95 fL (80-100); Mean Platelet Volume 9.2 fL (9.1-12.4); NEUTROPHILS ABSOLUTE AUTO 6.17 K/mm3 (1.96-9.15); NEUTROPHILS PERCENT AUTO 68 % (41-73); Platelet Count 242 K/mm3 (150-400); RDW Coefficient Variation 12.8 % (11.7-14.2); RDW Standard Deviation 44.5 fL (35.1-46.3); Red Blood Cell Count 3.51 M/mm3 (3.80-5.20); White Blood Cell Count 9.08 K/mm3 (4.00-11.30)
[2018-09-19 03:42] LABS: Anion Gap 8 mmol/L (6-16); Blood Urea Nitrogen 4 mg/dL (8-24); Bun/Creatinine Ratio 8.1 (12.0-20.0); CO2, Blood 22 mmol/L (21-32); Calcium, Blood 8.4 mg/dL (8.5-10.1); Chloride, Blood 105 mmol/L (98-108); Glomerular Filtration Rate >60 (60-); Glucose, Blood 83 mg/dL (70-99); Magnesium, Blood 1.8 mg/dL (1.6-2.4); Phosphorus, Blood 3.5 mg/dL (2.5-4.9); Potassium, Blood 3.8 mmol/L (3.5-5.5); Sodium, Blood 135 mmol/L (136-145)
--- NOTE | 2018-09-19 06:03 | NUR ---
END OF SHIFT SUMMARY PT HAS REMAINED OFF THE LEVOPHED AND VASOPRESSIN WITH BLOOD PRESSURES REMAINING WITH MAP'S GREATER THAN 60. PT IS ALERT AND ORIENTED. SHE WAS RESTLESS FOR THE FIRST HALF OF THE SHIFT, WHICH WAS NOTED TO GET WORSE AFTER ADMINISTRATION OF 1MG OF ATIVAN PER ORDERS. NO MORE ATIVAN GIVEN SINCE THEN AND PT HAS BEEN RESTING WELL. PT NOTED TO BE HAVING A LOT OF ECTOPI, ESPECIALLY WHEN PT IS RESTING ON HER LEFT SIDE; OTHERWISE SHE HAS BEEN NSR WITH PVC'S WITH HR 90-100'S. DEXTROSE 10% HAS BEEN TITRATED UP TO 300MLS/HR D/T LAST BLOOD SUGAR 69. BLOOD SUGARS HAVE BEEN MAINLY STAYING IN THE 80-90'S WITH DEXTROSE 10% 225-250MLS/HR. INSULIN REMAINS AT 1UNIT/KG/HR (71MLS/HR) WITH NO TITRATION. NS WITH 20MEQ OF KCL REMAIN AT 125MLS/HR. EMPTIED 6350 FROM DARNELL CATHETER THIS SHIFT WITH A TOTAL OF 4570 OF IV FLUIDS INFUSED; URINE IS CLEAR. CALL LIGHT REMAINS WITHIN REACH; HOWEVER, PT DOES NOT USE. THEREFORE, BED ALARM SET.
--- NOTE | 2018-09-19 07:15 | NUR ---
BEGINNING OF SHIFT Assumed care of pt at 0700 with Alie GUPTA. Bedside report received from Rosie GUPTA. Pt sleeping in bed during report. Pt wearing 4 LPM NC. Pt's son, Abelino, visited with pt for 5 minutes.
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
--- NOTE | 2018-09-19 09:46 | NUR ---
UPDATE Dr Leonard in to see pt at 0900. States plan to decrease insulin drip by 10 units/hr and continue with Q1H blood glucose checks until insulin drip is off. Pt OOB to use bedside commode using FWW. Pt was weak but otherwise tolerated activity well. Pt assisted to recliner afterwards. Pt on 2 LPM NC, requested O2 is removed because "My nose is dry". Titrated to room air. SpO2 96%. Currently on 40 units/hr insulin and 275 mL/hr of D10. Emmie from posion control center called requesting update. Update provided. No new recommendations.
--- NOTE | 2018-09-19 10:50 | NUR ---
PT BACK TO BED Pt back to bed from recliner with assist from this RN. Pt repositioned to right side independently. Pt shivering, states she is cold. Pt provided with blanet. Temp 99.9 per hurtado. Will continue to closely monitor. Insulin gtt decreased to 30 units per hour. D10 gtt decreased to 250 mL/hr. Director Life SalesSara, at bedside to discuss likes/dislikes as pt has been refusing meals.
--- NOTE | 2018-09-19 12:23 | NUR ---
MIDSHIFT Pt laying in bed awake. Pt states she is cold. Provided with blanket. Temp remains 99.9. Will closely monitor. Pt denies additional need. Insulin gtt infusing at 20 units per hour, D10 infusing at 250 mL per hour.
--- NOTE | 2018-09-19 12:59 | NUR ---
UPDATE Pt sitting up in bed, visiting with her friend, Cydney. Insulin gtt at 10 units/hour. D10 remains at 250 mL/hr. Plans for PICC RN to reposition PICC line per chest xray results.
--- NOTE | 2018-09-19 13:33 | NUR ---
HYPOGLYCEMIA CBG 49. Insulin gtt turned off. Pt drank 118 mL of apple juice. Offered kelby crackers and peanut butter, pt refused. D10 increased to 300 mL/hr. Plans to recheck CBG in 30 minutes.
--- NOTE | 2018-09-19 18:03 | NUR ---
CALL PLACED TO DR WORTHINGTON AT [address] Worthington to inquire about PT/OT consult as pt is weak when transferring from bed to commode or chair. Updated provider that pt is off insulin drip. Inquired about changing IV fluids as pt remained on 300 mL/hr of D10 and NS + KCl at 125/hr. Orders to DC NS + KCl and titrate pt off D10. Continue with Q1H CBG. Pt to remain ICU status overnight, per Dr Worthington.
--- NOTE | 2018-09-19 19:20 | NUR ---
SUMMARY Insulin drip remains off. Pt on 150 mL/hr of D10. Call placed to Dr Worthington at 1755 to update. Inquired if Q1H CBG checks are to occur overnight, even if D10 drip is titrated off. New orders given. No additional changes since last note. Bedside report given to Rosie GUPTA.
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
--- NOTE | 2018-09-19 22:04 | NUR ---
TALKED TO ACE RAI NP IN REGARDS TO UPDATING ABOUT EKG AND PROCALCITONIN RESULT, WELL PT REFUSING TO TAKE NSAIDS. ACE STATED TO OFFER TORADOL IF PT NEEDS IT, BUT IF NOT THEN TO LEAVE IT ALONE IF HER PAIN IS BEARABLE. PT APPEARS COMFORTABLE AT THIS TIME. WILL OFFER UPON NEXT BLOOD SUGAR CHECK
[2018-09-20 03:58] LABS: Anion Gap 7 mmol/L (6-16); Blood Urea Nitrogen 1 mg/dL (8-24); Bun/Creatinine Ratio 1.6 (12.0-20.0); CO2, Blood 26 mmol/L (21-32); Calcium, Blood 8.4 mg/dL (8.5-10.1); Chloride, Blood 110 mmol/L (98-108); Creatinine, Blood 0.62 mg/dL (0.40-1.00); Glomerular Filtration Rate >60 (60-); Glucose, Blood 104 mg/dL (70-99); Potassium, Blood 3.9 mmol/L (3.5-5.5); Sodium, Blood 143 mmol/L (136-145)
--- NOTE | 2018-09-20 05:43 | NUR ---
END OF SHIFT SUMMARY PT HAS SLEPT MOST OF SHIFT. UTILIZED CALL LIGHT FOR RESTROOM ONCE. UNSUCCESSFUL WITH BOWEL MOVEMENT. PT MOSTLY PASSING GAS WITH LITTLE SMEARS FOR RESULTS. DEXTROSE 10% OFF AT 2330 WITH BLOOD SUGARS REMAINING 90-100'S AFTER GTT TURNED OFF. ORDERS CHANGED TO AC AND HS BLOOD SUGAR CHECKS PER DR. JACKSON'S ORDERS. PT HAS BEEN VERY PLEASANT AND COOPERATIVE THIS SHIFT. DENIES SUICIDE IDEATION AT THIS TIME. STATES SHE IS LOOKING FORWARD TO MOVING TO [place] WITH HER OLDEST SON, AMY. CALL LIGHT WITHIN REACH. WILL CONTINUE TO MONITOR UNTIL REPORT IS HANDED OFF TO ONCOMING RN.
--- NOTE | 2018-09-20 07:13 | NUR ---
ASSUMED CARE REPORT FROM CANDY WEN. PATIENT A&O. SAYS SHE HAS BEEN AWAKE SINCE 0200 AND WANTS TO SLEEP MORE. WILL REMOVE CATHETER BEFORE SHE GETS OOB.
--- NOTE | 2018-09-20 07:22 | NUR ---
BIOX 84% WHILE SLEEPING 3L NC PLACED BACK ON
--- NOTE | 2018-09-20 08:06 | NUR ---
MD VISIT DR. JACKSON IN. PATIENT IS NOW MED/NO TELE.
--- NOTE | 2018-09-20 09:16 | NUR ---
OOB TO CHAIR. NOT INTERESTED IN WATCHING TV OR LOOKING OUT THE WINDOW. LIGHTS TURNED ON. CHAIR TURNED TO FACE THE WINDOW. WARM SOAPY WATER WITH WASHCLOTHES AND TOWEL PROVIDED FOR AM CARE. TOOTHBRUSH AND DENTURES PROVIDED. WHEN ASKED ABOUT WANTING TO HARM HERSELF, SHE SAID IT WAS HER [id number]. WHEN ASKED IF [id number] GAVE HER THE PILLS, SHE SAID NO, BUT SHE WOKE HER UP AT 4 AM AND TOLD HER TO GET OUT OF HER HOUSE.
--- NOTE | 2018-09-20 09:28 | NUR ---
PHYSICAL THERAPIST IN TO EVALUATE
--- NOTE | 2018-09-20 09:37 | NUR ---
POISON CONTROL UPDATED
--- NOTE | 2018-09-20 14:38 | NUR ---
OCCUPATIONAL THERAPY AMBULATED PATIENT IN THE ROOM
--- NOTE | 2018-09-20 15:00 | NUR ---
ASSUMED CARE OF PATIENT. NO ACUTE CHANGES; REMAINS IN RECLINER AND RESTFUL.
--- NOTE | 2018-09-20 15:00 | NUR ---
ASSUMED CARE OF PATIENT FROM LUÍS SINHA RN. DR. JAEGER HERE AND EVAL. PATIENT; 2 MD HOLD DROPPED; OKAY TO D/C IF OKAY WITH HOSPITALIST.
--- NOTE | 2018-09-20 15:15 | NUR ---
DR. JAEGER ROUNDING; PATIENT RELEASED FROM 2 MD HOLD; SEE FURTHER ORDERS.
--- NOTE | 2018-09-20 15:33 | NUR ---
MD VISIT DR. JAEGER IN. HOLD DROPPED. REPORT TO CANDY CRAIG
--- NOTE | 2018-09-20 16:50 | NUR ---
REPORT GIVEN TO CANDY DALLAS; PATIENT TO TRANSFER TO [facility]. FLOOR, ROOM 361.
--- NOTE | 2018-09-20 17:50 | NUR ---
TRANSFERRED TO MED. FLOOR, ROOM 361, VIA W/C; RN ACCOMPANYING PATIENT. BELONGINGS, CHART AND MEDS. BROUGHT, ALSO. PATIENT TRANSFERRING WITH JUST SBA REQUIRED. REMAINS WITH FLAT AFFECT; BUT COOPERATIVE.
--- NOTE | 2018-09-20 18:11 | NUR ---
PATIENT ARRIVED FROM ICU AT 1750. ONCE SHE WAS ORIENTED TO THE ROOM SHE ASKED IF SHE COULD GO OUT AND SMOKE. SHE IS NOT ON ANY MED HOLDS AND HER SON WAS ABLE TO PUSH HER OUT IN WC. PATIENT WAS ALERT AND ORIENTED AND EAGER TO GO SMOKE. SHE STATED SHE WOULD NOT BE LONG.
[2018-09-21] MEDS ORDERED: MIRT30ST MM (10:52)
[2018-09-21] MEDS ORDERED: METO25 PO (10:52)
--- NOTE | 2018-09-21 11:56 | NUR ---
DISCHARGE SUMMARY PT DISCHARGED TO HOME. PT LEFT ROOM VIA WHEELCHAIR AT 1155 VIA WHEELCHAIR AND ERP PROJECT MANAGER ESCORT. PT EDUCATED ON MEDCATIONS AND WHEN TO SEEK MEDICAL ATTENTION, PT AGREES. PT EDUCATED ON OVERDOSE. PT INSTRUCTED TO FOLLOW UP WITH PCP. PT AGREES. PICC DC'D BY TERRELL CRENSHAW RN, SEE DOCUMENTATION. BELONINGS RETUNRED. HOME MEDICATIONS THAT WERE LOCKED UP IN PHARMACY WERE ALSO RETURNED. PT NOTIFIED PER NOTE THAT PT'S BELONGINGS WERE SENT HOME WITH HER SON AMY DURING HER STAY IN ICU. ACTIVE LISTENING AND THERAPEUTIC COMMUNICATION USED WELL. ALL QUESTIONS ANSWERED
== END 2018-09-21 12:06 | disposition home or self-care (01) | DRG 918 ==
LOC: ER 13:53 → ICUW 15:41 → ICUE 15:41 → MEDS 09-20 17:49 → ENPENDDIS 09-21 10:16 → MEDS 09-21 12:06
PROVIDERS: Emergency Medicine; Internal Medicine Critical Care Medicine; ADMIT Hospitalist
PROC: 5A1945Z Respiratory Ventilation, 24-96 Consecutive Hours (ICD-10-PCS; principal; 2018-09-17)
DX: T46.1X2A Poisoning by calcium-channel blockers, intentional self-harm, initial encounter (principal); I95.2 Hypotension due to drugs; J44.9 Chronic obstructive pulmonary disease, unspecified; I25.10 Atherosclerotic heart disease of native coronary artery without angina pectoris; Z86.711 Personal history of pulmonary embolism; I10 Essential (primary) hypertension; Z85.41 Personal history of malignant neoplasm of cervix uteri; Z86.73 Personal history of transient ischemic attack (TIA), and cerebral infarction without residual deficits; I73.9 Peripheral vascular disease, unspecified; Z86.74 Personal history of sudden cardiac arrest; I25.2 Old myocardial infarction; E78.5 Hyperlipidemia, unspecified; F32.9 Major depressive disorder, single episode, unspecified; Z86.718 Personal history of other venous thrombosis and embolism; M79.7 Fibromyalgia; F17.210 Nicotine dependence, cigarettes, uncomplicated; Z79.01 Long term (current) use of anticoagulants; E11.9 Type 2 diabetes mellitus without complications
CPT/HCPCS: 36415; 36569; 51702; 71045; 80048; 80053; 80069; 81001; 82330; 82947; 83605; 83735; 84100; 84132; 84145; 85014; 85018; 85025; 87040; 87086; 93005; 93010; 96365; 96375; 97162; 97166; 97530; 99285-25; A9270; C1751; C9113; G0480; J0456; J0610; J0696; J1815; J2060; J3475; J3480; J7030; J7050; J7060; J7120; Q0163

== ENCOUNTER 2018-09-27 10:31 | Emergency (ER) | payer MEDICARE, OTHER ==
[~2018-09-27] VITALS: Ht 165.1 cm; Wt 66.7 kg
[~2018-09-27 10:31] MED LIST changes: +BIOTIN5000 MCG PO; +DIPH50 PO; +METO25 PO; +MIRT30ST MM
[2018-09-27 10:57] LABS: BASOPHILS ABSOLUTE AUTO 0.07 K/mm3 (0.00-0.23); BASOPHILS PERCENT AUTO 1 % (0-2); EOSINOPHILS PERCENT AUTO 0 % (0-6); Hematocrit 43.5 % (33.0-51.0); Hemoglobin 14.3 g/dL (11.5-16.0); IMMATURE GRAN ABSOLUTE AUTO 0.05 K/mm3 (0.00-0.10); IMMATURE GRAN PERCENT AUTO 1 % (0-1); LYMPHOCYTES ABSOLUTE AUTO 2.07 K/mm3 (0.84-5.20); LYMPHOCYTES PERCENT AUTO 20 % (21-46); MONOCYTES PERCENT AUTO 12 % (4-13); Mean Corpuscular HGB 32.2 pg (26.0-34.0); Mean Corpuscular HGB Conc 32.9 g/dL (31.5-36.5); Mean Platelet Volume 9.3 fL (9.1-12.4); NEUTROPHILS PERCENT AUTO 67 % (41-73); Platelet Count 359 K/mm3 (150-400); RDW Coefficient Variation 13.9 % (11.7-14.2); RDW Standard Deviation 49.9 fL (35.1-46.3); Red Blood Cell Count 4.44 M/mm3 (3.80-5.20); White Blood Cell Count 10.49 K/mm3 (4.00-11.30)
[2018-09-27 11:00] LABS: Mean Corpuscular Volume 98 fL (80-100)
[2018-09-27 11:22] LABS: Alanine Aminotransfer (ALT/SGP 39 U/L (12-78); Albumin, Blood 3.9 g/dL (3.4-5.0); Albumin/Globulin Ratio 0.9 (0.8-1.8); Alk Phos 70 U/L (50-136); Anion Gap 3 mmol/L (6-16); Aspartate Aminotrans (AST/SGOT 25 U/L (12-37); Bilirubin, Total 0.4 mg/dL (0.1-1.0); Blood Urea Nitrogen 16 mg/dL (8-24); Bun/Creatinine Ratio 19.7 (12.0-20.0); CO2, Blood 27 mmol/L (21-32); Calcium, Blood 8.9 mg/dL (8.5-10.1); Chloride, Blood 108 mmol/L (98-108); Creatinine, Blood 0.81 mg/dL (0.40-1.00); Globulin, Blood 4.4 g/dL (2.2-4.0); Glomerular Filtration Rate >60 (60-); Glucose, Blood 128 mg/dL (70-99); Sodium, Blood 138 mmol/L (136-145); Total Protein, Blood 8.3 g/dL (6.4-8.2); Troponin I <0.015 ng/mL (0.000-0.040)
== END 2018-09-27 11:35 | disposition left against medical advice (07) ==
LOC: ER 10:31
PROVIDERS: Emergency Medicine
DX: R07.9 Chest pain, unspecified (principal); I10 Essential (primary) hypertension; I25.2 Old myocardial infarction; E11.9 Type 2 diabetes mellitus without complications; J44.9 Chronic obstructive pulmonary disease, unspecified; F17.210 Nicotine dependence, cigarettes, uncomplicated; Z88.2 Allergy status to sulfonamides; Z88.6 Allergy status to analgesic agent; Z88.8 Allergy status to other drugs, medicaments and biological substances; Z79.899 Other long term (current) drug therapy
CPT/HCPCS: 80053; 83880; 84484; 85025; 85379; 93005; 93010; 99284-25; J1885

== ENCOUNTER 2019-03-03 13:53 | Emergency (ER) | payer MEDICARE, OTHER ==
[~2019-03-03] VITALS: Ht 165.1 cm; Wt 65.8 kg
[2019-03-03] MEDS ORDERED: FLUO.01TC TOP (15:18)
[2019-03-03] MEDS ORDERED: Ambien10 MG PO (15:18)
[2019-03-03] MEDS ORDERED: Prednisone20 MG PO (15:18)
== END 2019-03-03 15:35 | disposition home or self-care (01) ==
LOC: ER 13:53
DX: L25.8 Unspecified contact dermatitis due to other agents (principal); I25.10 Atherosclerotic heart disease of native coronary artery without angina pectoris; I25.2 Old myocardial infarction; J44.9 Chronic obstructive pulmonary disease, unspecified; I10 Essential (primary) hypertension; E78.5 Hyperlipidemia, unspecified; F32.9 Major depressive disorder, single episode, unspecified; F41.9 Anxiety disorder, unspecified; F17.210 Nicotine dependence, cigarettes, uncomplicated; Z88.6 Allergy status to analgesic agent; Z88.2 Allergy status to sulfonamides; Z88.8 Allergy status to other drugs, medicaments and biological substances; Z79.899 Other long term (current) drug therapy; Z79.01 Long term (current) use of anticoagulants; Z79.82 Long term (current) use of aspirin; Z79.51 Long term (current) use of inhaled steroids
CPT/HCPCS: 99283; J7512

== ENCOUNTER 2019-09-28 14:09 | Emergency (ER) | payer MEDICARE, OTHER ==
[~2019-09-28] VITALS: Ht 165.1 cm; Wt 65.8 kg
[~2019-09-28 14:09] MED LIST changes: +Ambien10 MG PO; +FLUO.01TC TOP; +Prednisone20 MG PO; +SERT100 PO; +WARF5 PO
[2019-09-28 14:58] LABS: BASOPHILS ABSOLUTE AUTO 0.07 K/mm3 (0.00-0.23); BASOPHILS PERCENT AUTO 1 % (0-2); EOSINOPHILS PERCENT AUTO 0 % (0-6); Hematocrit 42.5 % (33.0-51.0); Hemoglobin 14.3 g/dL (11.5-16.0); IMMATURE GRAN ABSOLUTE AUTO 0.01 K/mm3 (0.00-0.10); IMMATURE GRAN PERCENT AUTO 0 % (0-1); LYMPHOCYTES PERCENT AUTO 28 % (21-46); MONOCYTES ABSOLUTE AUTO 0.84 K/mm3 (0.16-1.47); MONOCYTES PERCENT AUTO 10 % (4-13); Mean Corpuscular HGB 31.4 pg (26.0-34.0); Mean Corpuscular HGB Conc 33.6 g/dL (31.5-36.5); Mean Corpuscular Volume 93 fL (80-100); Mean Platelet Volume 9.8 fL (9.1-12.4); NEUTROPHILS PERCENT AUTO 61 % (41-73); Platelet Count 324 K/mm3 (150-400); RDW Coefficient Variation 12.6 % (11.7-14.2); RDW Standard Deviation 43.4 fL (35.1-46.3); Red Blood Cell Count 4.55 M/mm3 (3.80-5.20); White Blood Cell Count 8.22 K/mm3 (4.00-11.30)
[2019-09-28 15:10] LABS: Alanine Aminotransfer (ALT/SGP 29 U/L (12-78); Albumin, Blood 4.2 g/dL (3.4-5.0); Albumin/Globulin Ratio 1.1 (0.8-1.8); Alk Phos 69 U/L (50-136); Anion Gap 7 mmol/L (6-16); Aspartate Aminotrans (AST/SGOT 25 U/L (12-37); Bilirubin, Total 0.3 mg/dL (0.1-1.0); Blood Urea Nitrogen 15 mg/dL (8-24); Bun/Creatinine Ratio 16.5 (12.0-20.0); CO2, Blood 23 mmol/L (21-32); Calcium, Blood 8.6 mg/dL (8.5-10.1); Chloride, Blood 110 mmol/L (98-108); Creatinine, Blood 0.91 mg/dL (0.40-1.00); Globulin, Blood 3.8 g/dL (2.2-4.0); Glomerular Filtration Rate >60 (60-); Glucose, Blood 115 mg/dL (70-99); Potassium, Blood 3.5 mmol/L (3.5-5.5); Sodium, Blood 140 mmol/L (136-145)
== END 2019-09-28 19:00 | disposition home or self-care (01) ==
LOC: ER 14:09
PROVIDERS: Physician Assistant
DX: K52.9 Noninfective gastroenteritis and colitis, unspecified (principal); Z88.2 Allergy status to sulfonamides; Z88.8 Allergy status to other drugs, medicaments and biological substances; Z88.6 Allergy status to analgesic agent; Z79.899 Other long term (current) drug therapy; Z79.82 Long term (current) use of aspirin; I10 Essential (primary) hypertension; E11.9 Type 2 diabetes mellitus without complications; I25.2 Old myocardial infarction; J44.9 Chronic obstructive pulmonary disease, unspecified; F17.210 Nicotine dependence, cigarettes, uncomplicated
CPT/HCPCS: 36415; 71045; 74177; 80053; 83690; 83880; 84484; 85025; 93005; 93010; 96374-59; 99285-25; J2405; Q9967

== ENCOUNTER 2019-10-04 22:52 | Observation (INO) | payer MEDICARE, OTHER ==
[~2019-10-04] VITALS: Ht 165.1 cm; Wt 66.7 kg
[2019-10-04 23:34] LABS: BASOPHILS PERCENT AUTO 1 % (0-2); EOSINOPHILS PERCENT AUTO 0 % (0-6); Hematocrit 38.5 % (33.0-51.0); Hemoglobin 13.1 g/dL (11.5-16.0); IMMATURE GRAN ABSOLUTE AUTO 0.02 K/mm3 (0.00-0.10); IMMATURE GRAN PERCENT AUTO 0 % (0-1); LYMPHOCYTES ABSOLUTE AUTO 3.23 K/mm3 (0.84-5.20); LYMPHOCYTES PERCENT AUTO 44 % (21-46); MONOCYTES ABSOLUTE AUTO 0.98 K/mm3 (0.16-1.47); MONOCYTES PERCENT AUTO 13 % (4-13); Mean Corpuscular HGB 31.6 pg (26.0-34.0); Mean Corpuscular Volume 93 fL (80-100); Mean Platelet Volume 9.5 fL (9.1-12.4); NEUTROPHILS ABSOLUTE AUTO 2.98 K/mm3 (1.96-9.15); NEUTROPHILS PERCENT AUTO 41 % (41-73); Platelet Count 295 K/mm3 (150-400); RDW Coefficient Variation 12.6 % (11.7-14.2); RDW Standard Deviation 43.5 fL (35.1-46.3); Red Blood Cell Count 4.14 M/mm3 (3.80-5.20); White Blood Cell Count 7.31 K/mm3 (4.00-11.30)
[2019-10-05 00:11] LABS: Acetaminophen, Random <2.0 ug/mL (10.0-30.0); Alanine Aminotransfer (ALT/SGP 18 U/L (12-78); Albumin, Blood 3.7 g/dL (3.4-5.0); Albumin/Globulin Ratio 1.1 (0.8-1.8); Alk Phos 61 U/L (50-136); Anion Gap 7 mmol/L (6-16); Aspartate Aminotrans (AST/SGOT 13 U/L (12-37); Bilirubin, Total 0.2 mg/dL (0.1-1.0); Blood Urea Nitrogen 18 mg/dL (8-24); Bun/Creatinine Ratio 22.6 (12.0-20.0); CO2, Blood 22 mmol/L (21-32); Calcium, Blood 8.1 mg/dL (8.5-10.1); Chloride, Blood 113 mmol/L (98-108); Ethanol (Alcohol), Blood, Med 186 mg/dL; Globulin, Blood 3.3 g/dL (2.2-4.0); Glomerular Filtration Rate >60 (60-); Glucose, Blood 97 mg/dL (70-99); Potassium, Blood 3.2 mmol/L (3.5-5.5); Salicylate 6.2 mg/dL (2.8-20.0); Sodium, Blood 142 mmol/L (136-145)
== END 2019-10-05 10:55 | disposition home or self-care (01) ==
LOC: ER 22:52 → EOR 22:53
PROVIDERS: ADMIT Emergency Medicine
DX: F33.2 Major depressive disorder, recurrent severe without psychotic features (principal); R45.851 Suicidal ideations; I10 Essential (primary) hypertension; I25.2 Old myocardial infarction; J44.9 Chronic obstructive pulmonary disease, unspecified; I25.10 Atherosclerotic heart disease of native coronary artery without angina pectoris; E11.51 Type 2 diabetes mellitus with diabetic peripheral angiopathy without gangrene; F10.129 Alcohol abuse with intoxication, unspecified; Z79.01 Long term (current) use of anticoagulants; Z79.82 Long term (current) use of aspirin
CPT/HCPCS: 80053; 85025; 96372; 99285-25; G0378; G0480; J2060; Q3014

== ENCOUNTER 2020-01-01 19:02 | Emergency (ER) | payer MEDICARE, OTHER ==
[~2020-01-01] VITALS: Ht 165.1 cm; Wt 70.8 kg
[~2020-01-01 19:02] MED LIST changes: -Adult Low Dose81 MG PO; -Hydrocodone-Ap1 EA20 PO; -Isosorbide Mono60 MG PO; -METO25 PO; -SERT100 PO; -WARF5 PO
[2020-01-01 20:03] LABS: BASOPHILS ABSOLUTE AUTO 0.11 K/mm3 (0.00-0.23); BASOPHILS PERCENT AUTO 1 % (0-2); EOSINOPHILS ABSOLUTE AUTO 0.01 K/mm3 (0.00-0.68); EOSINOPHILS PERCENT AUTO 0 % (0-6); Hematocrit 43.1 % (33.0-51.0); Hemoglobin 14.2 g/dL (11.5-16.0); IMMATURE GRAN ABSOLUTE AUTO 0.03 K/mm3 (0.00-0.10); IMMATURE GRAN PERCENT AUTO 0 % (0-1); LYMPHOCYTES ABSOLUTE AUTO 2.71 K/mm3 (0.84-5.20); LYMPHOCYTES PERCENT AUTO 24 % (21-46); MONOCYTES ABSOLUTE AUTO 1.18 K/mm3 (0.16-1.47); MONOCYTES PERCENT AUTO 11 % (4-13); Mean Corpuscular HGB 31.2 pg (26.0-34.0); Mean Corpuscular HGB Conc 32.9 g/dL (31.5-36.5); Mean Corpuscular Volume 95 fL (80-100); Mean Platelet Volume 9.9 fL (9.1-12.4); NEUTROPHILS ABSOLUTE AUTO 7.17 K/mm3 (1.96-9.15); NEUTROPHILS PERCENT AUTO 64 % (41-73); Platelet Count 376 K/mm3 (150-400); RDW Coefficient Variation 13.1 % (11.7-14.2); RDW Standard Deviation 46.2 fL (35.1-46.3); Red Blood Cell Count 4.55 M/mm3 (3.80-5.20); White Blood Cell Count 11.21 K/mm3 (4.00-11.30)
[2020-01-01 20:17] LABS: International Normalized Ratio 3.94
[2020-01-01] MEDS ORDERED: TRAZ150T57 PO (20:31)
[2020-01-01] MEDS ORDERED: AMLODIPINE BESY10 MG PO (20:32)
[2020-01-01] MEDS ORDERED: CLOP75 PO (20:32)
[2020-01-01] MEDS ORDERED: METO100 PO (20:33)
[2020-01-01] MEDS ORDERED: SERT100 PO (20:34)
[2020-01-01] MEDS ORDERED: WARF2.5 PO (20:34)
[2020-01-01] MEDS ORDERED: HYDROCODONE-AC1 EAC7 PO (20:34)
[2020-01-01] MEDS ORDERED: ISOSORBIDE MONO60 MG PO (20:35)
[2020-01-01] MEDS ORDERED: ASPIR 8181 M1 PO (20:36)
[2020-01-01 20:57] LABS: Alanine Aminotransfer (ALT/SGP 29 U/L (12-78); Albumin, Blood 4.4 g/dL (3.4-5.0); Albumin/Globulin Ratio 1.2 (0.8-1.8); Alk Phos 55 U/L (50-136); Anion Gap 6 mmol/L (6-16); Aspartate Aminotrans (AST/SGOT 22 U/L (12-37); Bilirubin, Total 0.4 mg/dL (0.1-1.0); Blood Urea Nitrogen 16 mg/dL (8-24); Bun/Creatinine Ratio 20.9 (12.0-20.0); CO2, Blood 27 mmol/L (21-32); Calcium, Blood 9.3 mg/dL (8.5-10.1); Chloride, Blood 107 mmol/L (98-108); Creatinine, Blood 0.77 mg/dL (0.40-1.00); Globulin, Blood 3.7 g/dL (2.2-4.0); Glomerular Filtration Rate >60 (60-); Glucose, Blood 115 mg/dL (70-99); Potassium, Blood 4.2 mmol/L (3.5-5.5); Sodium, Blood 140 mmol/L (136-145); Total Protein, Blood 8.1 g/dL (6.4-8.2)
[2020-01-01] MEDS ORDERED: NITR.4SL SL (21:18)
[2020-01-01] MEDS ORDERED: Simvastatin40 MG PO (21:20)
[2020-01-01 21:58] LABS: PCO2 Arterial 42.4 mmHg (35-45); PO2 Arterial 120 mmHg (80-100); pH Blood Arterial 7.39 (7.35-7.45)
== END 2020-01-01 23:00 | disposition short-term general hospital (02) ==
LOC: ER 19:02
PROVIDERS: Emergency Medicine; Student in an Organized Health Care Education/Training Program
DX: I62.9 Nontraumatic intracranial hemorrhage, unspecified (principal); G81.94 Hemiplegia, unspecified affecting left nondominant side; I10 Essential (primary) hypertension; E11.9 Type 2 diabetes mellitus without complications; J44.9 Chronic obstructive pulmonary disease, unspecified; I25.10 Atherosclerotic heart disease of native coronary artery without angina pectoris; E78.5 Hyperlipidemia, unspecified; F41.9 Anxiety disorder, unspecified; F32.9 Major depressive disorder, single episode, unspecified; Z88.2 Allergy status to sulfonamides; Z88.6 Allergy status to analgesic agent; Z88.1 Allergy status to other antibiotic agents; Z79.899 Other long term (current) drug therapy; Z79.01 Long term (current) use of anticoagulants; Z79.02 Long term (current) use of antithrombotics/antiplatelets; Z86.73 Personal history of transient ischemic attack (TIA), and cerebral infarction without residual deficits; Z95.5 Presence of coronary angioplasty implant and graft
CPT/HCPCS: 31500; 31720; 36415; 36600; 70450; 80053; 82803; 85025; 85610; 93005; 93010; 94002; 96365-59; 96375-59; 99285-25; C9132; J2270; J2405; J2704; J3010; J3430; J7050